=== PATIENT | male | born 1975 | race Caucasian/White ===

== ENCOUNTER 2020-01-13 08:02 | Outpatient (CLI) | payer OTHER, SELFPAY ==
--- NOTE | ~2020-01-13 | US_ITS ---
EXAMINATION: US abdomen complete DATE: 01/13/2020 08:54 INDICATION: Liver disease. TECHNIQUE: Multiple grayscale and Doppler ultrasound images of the abdomen were obtained. COMPARISON: None FINDINGS: Abdominal aorta is normal in caliber. Inferior vena cava is normal. The visualized portions of the head and body of the pancreas are normal. There is diffuse hepatic steatosis. The gallbladder is normal in size. No gallstones or gallbladder wall thickening. There was no sonographic Contreras sig n. The common duct is normal and measures 4 mm. There is normal flow in main portal vein. The kidneys are normal in size. There is a 1.6 cm cyst in right kidney. The spleen is normal in size. IMPRESSION: 1. Diffuse hepatic steatosis. Reviewed, dictated and finalized at location A.
== END 2020-01-13 08:03 | disposition home or self-care (01) ==
LOC: ANHIMG 08:08
PROVIDERS: PCP Emergency Medicine; Visit Provider Emergency Medicine
DX: K76.0 Fatty (change of) liver, not elsewhere classified (principal)
CPT/HCPCS: 76700